=== PATIENT | male | born 1965 | race African-American/Black ===

== ENCOUNTER 2018-06-14 22:37 | Emergency (ER) | payer SELFPAY ==
[~2018-06-14] VITALS: Ht 177.8 cm; Wt 90.7 kg
[2018-06-14 22:37] VITALS: BP 171/101
[2018-06-14] MEDS ORDERED: Cephalexin 500mg cap ORAL ONE (23:00)
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
[2018-06-15] MEDS ORDERED: CEPHALEXIN500 MG ORAL (00:18)
[2018-06-15 00:54] VITALS: BP 152/91
== END 2018-06-15 00:54 | disposition home or self-care (01) ==
LOC: EDBD 22:37 → EMR 22:51
DX: R60.0 Localized edema (principal)
CPT/HCPCS: 99283